=== PATIENT | female | born 1990 | race Asian ===

== ENCOUNTER → 2019-06-13 11:22 | Outpatient (CLI) | payer OTHER, SELFPAY ==
[2019-06-13 12:10] LABS: Influenza A - CEPHEID Flu A NEGATIVE (NEGATIVE); Influenza B - CEPHEID Flu B NEGATIVE (NEGATIVE)
== END ==
PROVIDERS: Visit Provider Nurse Practitioner
DX: R05 Cough (principal); R50.9 Fever, unspecified
CPT/HCPCS: 87502